=== PATIENT | female | born 1990 | race Caucasian/White ===

== ENCOUNTER 2019-04-23 08:19 | Inpatient (IN) | payer OTHER ==
[2019-04-23] VITALS (18 sets, daily range): BP systolic 90–163; BP diastolic 51–85; PULSE 66–106; RESP 13–25; Ht 160 cm; Wt 78.9 kg
[~2019-04-23] VITALS: Ht 160 cm; Wt 78.9 kg
[~2019-04-23 08:19] MED LIST: CEFAZOLIN 2 GM/50 ML (PMX) 50 ML IVPB ONE
[2019-04-23] MEDS ORDERED: BUPIVACAINE 0.25% (MPF) 30 ML INJ ONE (10:28)
[2019-04-23] MEDS ORDERED: HYDROmorphONE 1 MG/5 ML IV SYRINGE IV PRN ×9 (10:30→12:30)
[2019-04-23] MEDS ORDERED: LIDOCAINE 1% (MDV) 20 ML INJ ONE (10:50)
[2019-04-23] MEDS ORDERED: MIDAZOLAM 1 MG/ML 2 ML INJ ONE (10:50)
[2019-04-23] MEDS ORDERED: PROPOFOL 20 ML ONE (10:50)
[2019-04-23] MEDS ORDERED: ROPIVACAINE 0.5 % 30 ML VIAL ONE (11:05)
[2019-04-23] MEDS ORDERED: CEFAZOLIN 1 GM INJ ONE (11:12)
[2019-04-23] MEDS ORDERED: ONDANSETRON 4 MG INJ ONE (11:17)
[2019-04-23] MEDS ORDERED: KETOROLAC 30 MG INJ ONE (11:17)
[2019-04-23] MEDS ORDERED: POLYMYXIN/BACITRACIN 1L IRRIG IRR ONE (11:41)
[2019-04-23] MEDS ORDERED: HYDROCODONE/APAP (5/325) TAB PO ONE (12:00)
[2019-04-23] MEDS ORDERED: KETOROLAC 15 MG INJ IV PRN (12:30)
[2019-04-23] MEDS ORDERED: FENTAnyl 50 MCG/ML VIAL IV PRN ×5 (12:30)
[2019-04-23] MEDS ORDERED: HYDROmorphONE 0.5 MG/0.5 ML SYG IV STA (14:43)
[2019-04-23] MEDS ORDERED: HYDROCODONE/APAP (10/325) TAB PO ONE (15:00)
[2019-04-23] MEDS: SOD CHLORIDE 0.9% 1,000 ML IV SCH ×3 (17:30→19:20)
[2019-04-23] MEDS: HYDROmorphONE 0.5 MG/0.5 ML SYG IV PRN ×2 (18:30→22:48)
[2019-04-24 01:45] VITALS: BP 90/54; PULSE 80; RESP 17
[2019-04-24] MEDS: HYDROCODONE/APAP (5/325) TAB PO PRN ×3 (02:24→21:34)
[2019-04-24] MEDS: SOD CHLORIDE 0.9% 1,000 ML IV SCH ×3 (06:43→21:38)
[2019-04-24 07:56] VITALS: BP 93/55; PULSE 64; RESP 16
[2019-04-24 11:38] VITALS: BP 109/63; PULSE 73
[2019-04-24] MEDS: HYDROmorphONE 0.5 MG/0.5 ML SYG IV PRN ×2 (11:41→17:47)
[2019-04-24 13:14] VITALS: BP 101/57; PULSE 68; RESP 16
[2019-04-24 20:06] VITALS: BP 109/58; PULSE 75; RESP 17
[2019-04-25 01:46] VITALS: BP 98/56; PULSE 73; RESP 18
[2019-04-25] MEDS: HYDROCODONE/APAP (5/325) TAB PO PRN ×3 (05:42→19:58)
[2019-04-25 07:55] VITALS: BP 100/59; PULSE 74; RESP 18
[2019-04-25] MEDS: HYDROmorphONE 0.5 MG/0.5 ML SYG IV PRN (09:27)
[2019-04-25] MEDS: SOD CHLORIDE 0.9% 1,000 ML IV SCH ×3 (09:27→22:50)
[2019-04-25] MEDS ORDERED: MAGNESIUM HYDROXIDE 30ML CUP PO ONE (12:00)
[2019-04-25 13:44] VITALS: BP 104/56; PULSE 77; RESP 18
[2019-04-25] MEDS: KETOROLAC 30 MG INJ IV PRN (16:56)
[2019-04-25] MEDS ORDERED: BISACODYL 10 MG SUPP PR ONE (17:30)
[2019-04-25] MEDS ORDERED: NA PHOSPHATE/BIPHOS 133 ML ENEMA PR PRN (17:30)
[2019-04-25 20:17] VITALS: BP 107/58; PULSE 75; RESP 17
[2019-04-26 02:00] VITALS: BP 100/53; PULSE 80; RESP 18
[2019-04-26] MEDS: SOD CHLORIDE 0.9% 1,000 ML IV SCH ×3 (02:16→15:51)
[2019-04-26] MEDS: KETOROLAC 30 MG INJ IV PRN (02:26)
[2019-04-26 08:48] VITALS: BP 107/57; PULSE 69; RESP 16
[2019-04-26] MEDS: HYDROCODONE/APAP (5/325) TAB PO PRN ×2 (08:59→21:10)
[2019-04-26 14:16] VITALS: BP 109/58; PULSE 67; RESP 16
[2019-04-26 19:23] VITALS: BP 112/67; PULSE 75; RESP 16
[2019-04-27 02:31] VITALS: BP 98/51; PULSE 72; RESP 20
[2019-04-27] MEDS: HYDROCODONE/APAP (5/325) TAB PO PRN ×2 (03:04→08:52)
[2019-04-27] MEDS: SOD CHLORIDE 0.9% 1,000 ML IV SCH (06:04)
[2019-04-27 09:00] VITALS: BP 93/55; PULSE 70; RESP 16
[2019-04-27 14:52] VITALS: BP 115/65; PULSE 72; RESP 16
== END 2019-04-27 15:01 | disposition home or self-care (01) | DRG 352 ==
LOC: SDS 08:19 → INTOOBSV 17:00 → REC 17:00 → 2NE 18:00 → OBSVTOIN 04-24 17:15
PROVIDERS: ADMIT Surgery; ATTEND Surgery
PROC: 0YU50JZ Supplement Right Inguinal Region with Synthetic Substitute, Open Approach (ICD-10-PCS; principal; 2019-04-23 10:30)
DX: K40.30 Unilateral inguinal hernia, with obstruction, without gangrene, not specified as recurrent (principal); R53.1 Weakness; R11.0 Nausea
CPT/HCPCS: 70551; 80048; 84702; 84703; 85025; C1781; G0378; J0690; J1170; J1885; J2250; J2405; J2795; J3010; J7030